=== PATIENT | female | born 1975 | race Caucasian/White ===

== ENCOUNTER 2020-09-29 22:02 | Observation (INO) | payer OTHER, SELFPAY ==
[2020-09-29 22:04] VITALS: BP 162/81; PULSE 82; RESP 15; TEMP 36.6; O2SAT 98; BMI 36.6
--- NOTE | 2020-09-29 22:26 | US_ITS ---
STUDY: ABDOMINAL ULTRASOUND - RIGHT UPPER QUADRANT REASON FOR VISIT: Female, 45 years old PAIN-RUQ TECHNIQUE: Ultrasound evaluation of the right upper quadrant was performed with real-time and static mg-scale imaging. TECHNICAL QUALITY: Adequate. COMPARISON: None. FINDINGS: Liver: The liver measures 15.7 cm. There is normal echogenicity of the liver. The bile ducts are within normal limits. There is hepatic color flow. The direction of portal flow is hepatopetal. There is no demonstrated mass lesion. Gallbladder: Normal distended gallbladder. The gallbladder wall measures 2 mm. There is a positive sonographic Wallace''s sign. There is no pericholecystic fluid. Multiple nonmobile stones in the gallbladder neck. Common Bile Duct (C.B.D.): The common bile duct measures 3 mm. Pancreas: Normal pancreatic head. Pancreatic tail and body are not visualized secondary to bowel gas. There is normal echogenicity of the pancreas. There is no demonstrated pancreatic mass or cyst. Right Kidney: Normal size of the right kidney. The right kidney measures 11.4 x 4.5 x 4.3 cm. Normal renal cortex. The right cortex measures 1.3 cm. There is no demonstrated renal mass or cyst. There is no right hydronephrosis. US/Gallbladder IMPRESSION: Normal liver Cholelithiasis with nonmobile stones in the gallbladder neck and a positive Wallace''s sign consistent with acute cholecystitis. Normal pancreatic head. Pancreatic tail and body not visualized secondary to bowel gas. Normal right kidney. Electronically Signed: Pura Sharma MD at 23:06 EDT , Service support ,
[2020-09-29 22:49] LABS: Anion Gap 6 (5-15); BUN 18 mg/dL (7-18); BUN/Creat Ratio 19.8 RATIO (10-20); Calcium,Total 9.4 mg/dL (8.5-10.1); Chloride 106 mmol/L (98-107); Creatinine, Serum 0.91 mg/dL (0.55-1.02); EST Glomerular Filtration Rate 71 mL/min (>60); Est Glom Filt Rate - Afr Amer 86 mL/min (>60); Estimated Creatinine Clearance 73.08 ml/min; Glucose 107 mg/dL (74-106); Potassium 3.8 mmol/L (3.5-5.1); Sodium Level 138 mmol/L (136-145)
[2020-09-29 23:05] LABS: AST(SGOT) 13 U/L (15-37); Alanine Aminotransfer ALT/SGPT 19 U/L (13-56); Albumin, Serum 3.8 g/dL (3.2-5.0); Alkaline Phosphatase 69 U/L (45-117); Bilirubin, Direct 0.12 mg/dL (0.00-0.30); Globulin 4.1 g/dL (2.2-4.2); Protein, Total 7.9 g/dL (6.4-8.2)
[2020-09-29] MEDS: 0.9% Normal Saline 1,000 ML 1000 ML IV (23:25)
[2020-09-29] MEDS: Ondansetron 4 MG/2 ML Vial IV (23:25)
[2020-09-29] MEDS: Morphine 4 MG/ML Syringe IV (23:26)
[2020-09-29 23:29] LABS: Absolute Lymphocyte Count 3.66 X10^3/uL (0.83-4.51); Absolute Neutrophil Count 6.3 X10^3/uL (2.0-7.7); Basophil# 0.06 X10^3/uL; Basophil% 0.5 % (0-1); Eosinophil# 0.16 X10^3/uL; Eosinophils% 1.5 % (0-5); Hematocrit 41.1 % (37-47); Hemoglobin 13.2 g/dL (12.0-15.0); Lymphocyte # 3.66 X10^3/ul (0.83-4.51); Lymphocyte % 33.3 % (19-41); Mean Corp Hgb Conc 32.1 g/dL (32-36); Mean Corpuscular Hgb 28.6 pg (27.0-32.0); Mean Platelet Vol. 9.3 fl (6.2-12.0); Monocyte# 0.77 X10^3/uL; NRBC Flagged by Analyzer 0 % (0-5); Neutrophil # 6.33 X10^3/uL (2.7-7.7); Neutrophil % 57.5 % (47-70); Platelet Count 395 K/mm3 (150-450); RBC Distribution Width CV 12.4 % (11.6-14.6); RBC Distribution Width SD 40.4 fl (35.1-43.9); Red Blood Count 4.62 M/mm3 (4.2-5.4)
[2020-09-29 23:34] LABS: Lipase 144 U/L (73-393)
[2020-09-29 23:42] LABS: Internal QC Validated? YES +Cl - CLEAR BKGD; Pregnancy, Serum, hCG Quali. NEGATIVE Negative
[2020-09-29 23:43] LABS: Mucous, Urine 0 SEEN /hpf (<or=2+); Red Blood Cells-Urine 0 SEEN /hpf (0-5); Squamous Epithelial Cells - UA 0 SEEN /hpf (5-10)
[2020-09-29 23:44] LABS: Color, Urine Yellow (Yellow); Glucose, Dipstick Normal (Normal); Ketone-Dipstick Negative (Negative); Leukocyte Esterase-Dipstick Negative /ul (Negative); Nitrite-Dipstick Negative (Negative); Occult Blood-Urine 50 /ul (Negative); Protein-Dipstick Negative (Negative); Urine Bilirubin Dipstick Negative (Negative); Urine Clarity Clear (Clear); Urine Urobilinogen Normal (Normal)
[2020-09-30] VITALS (14 sets, daily range): BP systolic 114–158; BP diastolic 63–116; PULSE 62–87; RESP 16–18; TEMP 36.5–37.3; O2SAT 97–100; BMI 36.1
[2020-09-30 00:35] LABS: Bacteria 1+ /hpf (None Seen); White Blood Cells 0-5 SEEN /hpf (0-5)
--- NOTE | 2020-09-30 00:58 | EDS_ITS ---
HPI HPI - GI History of Present Illness Chief Complaint: Abd Pain Narrative Narrative: Patient reports that she has abdominal pain that began 4:00 this afternoon is gradually gotten worse. Is a sharp pain in the right upper quadrant that radiates to her upper back that is 10-10 at worst 9-10 currently. Is worsened by movement and eating. Is relieved by remaining still. She has nausea without vomiting. No diarrhea. Last bowel was today. Normal hematochez ia. No dysuria frequency. Last menstrual period was 3 weeks ago. No vaginal bleeding or discharge. Patient reports that she has had this 7?8 times in the past 2 months. She has also noted fatty food intolerance. PFSH PFSH Home Medications NK 09/29/20 [History Last Taken Unknown] Allergy/AdvReac Type Severity Reaction Status Date / Time No Known Allergies Allergy Verified 09/29/20 22:04 Surgical History H/O tubal ligation Social History Smoking Status: Never smoker ROS ROS ED Constitutional Constitutional ED: Denies chills, fever(s) or sweats Eyes Eyes: Denies change in vision ENT ENT ED: Denies sore throat Cardiovascular Cardiovascular: Denies chest pain Respiratory/Chest Respiratory/Chest: Denies cough, dyspnea or dyspnea on exertion Gastrointestinal Gastrointestinal: Reports abdominal pain and nausea; Denies diarrhea, melena or vomiting Genitourinary Genitourinary ED: Denies dysuria or urinary frequency Musculoskeletal Musculoskeletal: Reports back pain; Denies myalgias Integumentary Denies rash Neurologic Neurologic: Denies headache(s), paresthesias or weakness EXAM Physical Exam Const Vital Signs: 09/29/20 22:04 Temperature 97.9 F Temperature Source Temporal Pulse Rate 82 Respiratory Rate 15 Blood Pressure 162/81 H Blood Pressure Mean 108 Pulse Ox 98 Oxygen Delivery Method Room Air Positive well nourished and well developed General Appearance ED: well developed HEENT Reports normocephalic and head/scalp atraumatic Eyes PERRL Neck no lymphadenopathy, supple and no JVD General: Negative for tenderness Resp normal respiratory effort and clear to auscultation bilaterally Cardio regular rate, regular rhythm and no murmurs GI normal to inspection, nondistended, normoactive bowel sounds and non-distended GI Narrative: Moderate tenderness palpation the right upper quadrant with a positive Wallace sign. No guarding, rebound, or peritoneal signs. Auscultation: normoactive bowel sounds Palpation: soft and tender Back/Spine no CVA tenderness Back/Spine Narrative: Nontender. Extremity General Extremety ED: Negative for edema or tenderness General Extremity: Negative for edema Neuro oriented x3, CN's II-XII intact bilaterally and no sensory deficits noted Sensorium / Orientation: alert Motor Exam: strength 5/5 throughout Psych mental status grossly normal Skin no rashes or lesions noted MDM MDM Lab Data Labs: Laboratory Results - last 24 hr 09/29/20 09/29/20 09/29/20 22:15 22:15 22:15 WBC 11.0 RBC 4.62 Hgb 13.2 Hct 41.1 MCV 89.0 MCH 28.6 MCHC 32.1 RDW Std Deviation 40.4 RDW Coeff of Nilam 12.4 Plt Count 395 MPV 9.3 Immature Gran % (Auto) 0.200 Neut % (Auto) 57.5 Lymph % (Auto) 33.3 [place] % (Auto) 7.0 Eos % (Auto) 1.5 Baso % (Auto) 0.5 Absolute Neuts (auto) 6.3 Absolute Lymphs (auto) 3.66 Nucleated RBC % 0 Sodium 138 Potassium 3.8 Chloride 106 Carbon Dioxide 26.0 Anion Gap 6 BUN 18 Creatinine 0.91 Estim Creat Clear Calc 73.08 Est GFR (MDRD) Af Amer 86 Est GFR (MDRD) Non-Af 71 BUN/Creatinine Ratio 19.8 Glucose 107 H Calcium 9.4 Total Bilirubin 0.30 Direct Bilirubin 0.12 AST 13 L ALT 19 Alkaline Phosphatase 69 Total Protein 7.9 Albumin 3.8 Globulin 4.1 Lipase Serum , Qual Urine Color Urine Clarity Urine pH Ur Specific [place] Urine Protein Urine Glucose (UA) Urine Ketones Urine Occult Blood Urine Nitrite Urine Bilirubin Urine Urobilinogen Ur Leukocyte Esterase Urine RBC Urine WBC Ur Squamous Epith Cells Urine Bacteria Urine Mucus 09/29/20 09/29/20 09/29/20 22:15 22:15 23:35 WBC RBC Hgb Hct MCV MCH MCHC RDW Std Deviation RDW Coeff of Nilam Plt Count MPV Immature Gran % (Auto) Neut % (Auto) Lymph % (Auto) [place] % (Auto) Eos % (Auto) Baso % (Auto) Absolute Neuts (auto) Absolute Lymphs (auto) Nucleated RBC % Sodium Cancelled Potassium Cancelled Chloride Cancelled Carbon Dioxide Cancelled Anion Gap Cancelled BUN Cancelled Creatinine Cancelled Estim Creat Clear Calc Est GFR (MDRD) Af Amer Cancelled Est GFR (MDRD) Non-Af Cancelled BUN/Creatinine Ratio Cancelled Glucose Cancelled Calcium Cancelled Total Bilirubin Direct Bilirubin AST ALT Alkaline Phosphatase Total Protein Albumin Globulin Lipase 144 Serum , Qual NEGATIVE Urine Color Yellow Urine Clarity Clear Urine pH 6.0 Ur Specific [place] 1.020 Urine Protein Negative Urine Glucose (UA) Normal Urine Ketones Negative Urine Occult Blood 50 H Urine Nitrite Negative Urine Bilirubin Negative Urine Urobilinogen Normal Ur Leukocyte Esterase Negative Urine RBC 0 SEEN Urine WBC 0-5 SEEN Ur Squamous Epith Cells 0 SEEN Urine Bacteria 1+ Urine Mucus 0 SEEN Radiography Diagnostic Testing: Radiology Impression Gallbladder Ultrasound 09/29/20 22:26 IMPRESSION: Normal liver Cholelithiasis with nonmobile stones in the gallbladder neck and a positive Wallace''s sign consistent with acute cholecystitis. Normal pancreatic head. Pancreatic tail and body not visualized secondary to bowel gas. Normal right kidney. Electronically Signed: Pura Sharma MD at 23:06 EDT , Service support , Treatment and Re-Evaluation Comments:: Emergency department course: Patient was given morphine, Zofran, and Zosyn IV. She is resting comfortably. Treatment plan: The patient was discussed with Dr. Fatima. She will be admitted to the hospital for further evaluation and treatment. Discharge Plan Triage Chief Complaint: Abd Pain ED Provider: Dov Perez Dx/Rx/DC Orders Clinical Impression: Acute cholecystitis Prescriptions: No Action NK RF: 0 Primary Care Provider: Care Physician,No Primary Referrals: Care Physician,No Primary [Primary Care Provider] -
[2020-09-30] MEDS: Morphine 2 MG/ML Syringe IV ×2 (02:25→15:52)
[2020-09-30] MEDS: 0.9% Normal Saline 1,000 ML 120 ML IV ×3 (02:25→20:03)
[2020-09-30] MEDS: Ondansetron 4 MG/2 ML Vial IV ×2 (02:49→15:53)
[2020-09-30 05:43] LABS: Absolute Lymphocyte Count 2.94 X10^3/uL (0.83-4.51); Basophil# 0.02 X10^3/uL; Basophil% 0.2 % (0-1); Eosinophil# 0.17 X10^3/uL; Hematocrit 39.4 % (37-47); Hemoglobin 12.5 g/dL (12.0-15.0); Lymphocyte # 2.94 X10^3/ul (0.83-4.51); Lymphocyte % 33.8 % (19-41); Mean Corp Hgb Conc 31.7 g/dL (32-36); Mean Corpuscular Hgb 28.3 pg (27.0-32.0); Mean Corpuscular Volume 89.1 fL (81-99); Mean Platelet Vol. 9.1 fl (6.2-12.0); Monocyte# 0.56 X10^3/uL; Monocyte% 6.4 % (0-10); NRBC Flagged by Analyzer 0 % (0-5); Neutrophil # 4.97 X10^3/uL (2.7-7.7); Neutrophil % 57.3 % (47-70); Platelet Count 323 K/mm3 (150-450); RBC Distribution Width CV 12.3 % (11.6-14.6); RBC Distribution Width SD 40.2 fl (35.1-43.9); Red Blood Count 4.42 M/mm3 (4.2-5.4); White Blood Count 8.7 K/mm3 (4.4-11.0)
--- NOTE | 2020-09-30 05:59 | HP.PCM.SX_ITS ---
HPI - General General Date of Admission: 09/30/20 HPI Narrative HARMONY LOPEZ, is a 45 F who presents due to right upper quadrant pain to the ER. Patient states she has had multiple episodes for the last 2 to 3 months. Patient's ultrasound showed gallstones at the neck, normal wall no pe richolecystic fluid, normal common bile duct. Currently patient states her pain is improved with the pain meds. PFSH Medical History Facial trauma Home Medications multivitamin 1 tab PO DAILY 09/30/20 [History Last Taken 09/29/20] Allergy/AdvReac Type Severity Reaction Status Date / Time No Known Allergies Allergy Verified 09/29/20 22:04 Surgical History H/O tubal ligation Hx of tonsillectomy Social History Smoking Status: Never smoker Vital Signs Vital Signs Vital Signs: 09/29/20 22:04 09/30/20 01:45 09/30/20 02:23 Temperature 97.9 F 98.3 F 98.3 F Temperature Source Temporal Oral Oral Pulse Rate 82 77 73 Respiratory Rate 15 16 16 Blood Pressure 162/81 H 129/116 H 130/68 H Blood Pressure Mean 108 120 88 Blood Pressure Source Monitor Blood Pressure Position Semi-Fowlers Blood Pressure Location Left Arm Pulse Ox 98 100 100 Oxygen Delivery Method Room Air Room Air Room Air Physical Exam Const alert, oriented x3 and no apparent distress HEENT normocephalic and head/scalp atraumatic Resp normal respiratory effort Cardio regular rate GI soft to palpation; Negative for non-distended Palpation: tender RUQ; Negative for guarding Extremity no clubbing, cyanosis or edema Neuro CN's II-XII intact bilaterally Psych mental status grossly normal Lab / Micro Data Result Diagrams: 09/30/20 05:15 09/29/20 22:15 Labs: Laboratory Results - last 24 hr 09/29/20 09/29/20 09/29/20 22:15 22:15 22:15 WBC 11.0 RBC 4.62 Hgb 13.2 Hct 41.1 MCV 89.0 MCH 28.6 MCHC 32.1 RDW Std Deviation 40.4 RDW Coeff of Nilam 12.4 Plt Count 395 MPV 9.3 Immature Gran % (Auto) 0.200 Neut % (Auto) 57.5 Lymph % (Auto) 33.3 [place] % (Auto) 7.0 Eos % (Auto) 1.5 Baso % (Auto) 0.5 Absolute Neuts (auto) 6.3 Absolute Lymphs (auto) 3.66 Nucleated RBC % 0 Sodium 138 Potassium 3.8 Chloride 106 Carbon Dioxide 26.0 Anion Gap 6 BUN 18 Creatinine 0.91 Estim Creat Clear Calc 73.08 Est GFR (MDRD) Af Amer 86 Est GFR (MDRD) Non-Af 71 BUN/Creatinine Ratio 19.8 Glucose 107 H Calcium 9.4 Total Bilirubin 0.30 Direct Bilirubin 0.12 AST 13 L ALT 19 Alkaline Phosphatase 69 Total Protein 7.9 Albumin 3.8 Globulin 4.1 Lipase Serum , Qual Urine Color Urine Clarity Urine pH Ur Specific [place] Urine Protein Urine Glucose (UA) Urine Ketones Urine Occult Blood Urine Nitrite Urine Bilirubin Urine Urobilinogen Ur Leukocyte Esterase Urine RBC Urine WBC Ur Squamous Epith Cells Urine Bacteria Urine Mucus 09/29/20 09/29/20 09/29/20 22:15 22:15 23:35 WBC RBC Hgb Hct MCV MCH MCHC RDW Std Deviation RDW Coeff of Nilam Plt Count MPV Immature Gran % (Auto) Neut % (Auto) Lymph % (Auto) [place] % (Auto) Eos % (Auto) Baso % (Auto) Absolute Neuts (auto) Absolute Lymphs (auto) Nucleated RBC % Sodium Cancelled Potassium Cancelled Chloride Cancelled Carbon Dioxide Cancelled Anion Gap Cancelled BUN Cancelled Creatinine Cancelled Estim Creat Clear Calc Est GFR (MDRD) Af Amer Cancelled Est GFR (MDRD) Non-Af Cancelled BUN/Creatinine Ratio Cancelled Glucose Cancelled Calcium Cancelled Total Bilirubin Direct Bilirubin AST ALT Alkaline Phosphatase Total Protein Albumin Globulin Lipase 144 Serum , Qual NEGATIVE Urine Color Yellow Urine Clarity Clear Urine pH 6.0 Ur Specific [place] 1.020 Urine Protein Negative Urine Glucose (UA) Normal Urine Ketones Negative Urine Occult Blood 50 H Urine Nitrite Negative Urine Bilirubin Negative Urine Urobilinogen Normal Ur Leukocyte Esterase Negative Urine RBC 0 SEEN Urine WBC 0-5 SEEN Ur Squamous Epith Cells 0 SEEN Urine Bacteria 1+ Urine Mucus 0 SEEN 09/30/20 05:15 WBC 8.7 RBC 4.42 Hgb 12.5 Hct 39.4 MCV 89.1 MCH 28.3 MCHC 31.7 L RDW Std Deviation 40.2 RDW Coeff of Nilam 12.3 Plt Count 323 MPV 9.1 Immature Gran % (Auto) 0.300 Neut % (Auto) 57.3 Lymph % (Auto) 33.8 [place] % (Auto) 6.4 Eos % (Auto) 2.0 Baso % (Auto) 0.2 Absolute Neuts (auto) 5.0 Absolute Lymphs (auto) 2.94 Nucleated RBC % 0 Sodium Potassium Chloride Carbon Dioxide Anion Gap BUN Creatinine Estim Creat Clear Calc Est GFR (MDRD) Af Amer Est GFR (MDRD) Non-Af BUN/Creatinine Ratio Glucose Calcium Total Bilirubin Direct Bilirubin AST ALT Alkaline Phosphatase Total Protein Albumin Globulin Lipase Serum , Qual Urine Color Urine Clarity Urine pH Ur Specific [place] Urine Protein Urine Glucose (UA) Urine Ketones Urine Occult Blood Urine Nitrite Urine Bilirubin Urine Urobilinogen Ur Leukocyte Esterase Urine RBC Urine WBC Ur Squamous Epith Cells Urine Bacteria Urine Mucus Micro: Microbiology 09/30/20 01:15 SARS-CoV-2 Antigen (Rapid) - Final Interface Orders Radiology Impression Gallbladder Ultrasound 09/29/20 22:26 IMPRESSION: Normal liver Cholelithiasis with nonmobile stones in the gallbladder neck and a positive Wallace''s sign consistent with acute cholecystitis. Normal pancreatic head. Pancreatic tail and body not visualized secondary to bowel gas. Normal right kidney. Electronically Signed: Pura Sharma MD at 23:06 EDT , Service support , Assessment & Plan Assessment/Plan (1) Acute cholecystitis: PLAN: Reviewed the anatomy with the patient and discussed the procedure: laparoscopic cholecystectomy with possible cholangiograms, possible open. Review risks including but not limited to bleeding, infection, hernia, bile leak, retai josette gallstones requiring another procedure ERCP- Endoscopic Retrograde Cholangiopancreatography, injury to another organ (bile ducts, common bile duct, small bowel, etc.) possible transfer to tertiary care facility and conversion to an open procedure. All questions were answered. Rashida Fatima M.D. Pager: [phone] [facility] [address] [place] [address], [address] [place] [address] Office: [phone] Procedure Criteria Type of Procedure Procedure Type: Elective Elective Risks - COVID COVID Risk Discussion: The surgeon/proceduralist and patient have discussed in detail the risk of exposure to and/or potential harm posed by the COVID-19 virus with having a surgery/procedure at this time versus the risk of delaying the surgery/procedure. It is not possible to know either the risk of delaying the surgery or procedure or chance of getting an infection with perfect accuracy, but a joint decision was made between the patient and the surgeon/proceduralist to proceed at this time with the scheduled surgery/procedure as indicated on the consent form.
--- NOTE | 2020-09-30 06:00 | EKG12_ITS ---
Test Reason : PRE-OP Blood Pressure : / mmHG Vent. Rate : 066 BPM Atrial Rate : 066 BPM P-R Int : 118 ms QRS Dur : 086 ms QT Int : 430 ms P-R-T Axes : 031 015 021 degrees QTc Int : 450 ms Normal sinus rhythm Normal ECG Confirmed by VIOLETTA EDWARDS, RAMILA ([id number]), order editor BROWN ANTHONY ([id number]) on 10/05/2020 9:56:31 AM Referred By: CHRISTOPHER Confirmed By:RAMILA SHIPLEY MD
[2020-09-30 06:17] LABS: AST(SGOT) 16 U/L (15-37); Alanine Aminotransfer ALT/SGPT 17 U/L (13-56); Albumin, Serum 3.2 g/dL (3.2-5.0); Alkaline Phosphatase 61 U/L (45-117); Anion Gap 6 (5-15); BUN 12 mg/dL (7-18); BUN/Creat Ratio 17.4 RATIO (10-20); Bilirubin, Direct 0.13 mg/dL (0.00-0.30); Calcium,Total 8.3 mg/dL (8.5-10.1); Chloride 112 mmol/L (98-107); Creatinine, Serum 0.69 mg/dL (0.55-1.02); EST Glomerular Filtration Rate 98 mL/min (>60); Est Glom Filt Rate - Afr Amer 118 mL/min (>60); Estimated Creatinine Clearance 96.39 ml/min; Globulin 3.4 g/dL (2.2-4.2); Glucose 87 mg/dL (74-106); Potassium 3.7 mmol/L (3.5-5.1); Protein, Total 6.6 g/dL (6.4-8.2); Sodium Level 142 mmol/L (136-145)
--- NOTE | 2020-09-30 07:12 | RAD_ITS ---
CLINICAL HISTORY: Female, 45 years old. Cholecystectomy PROCEDURE: CHOLANGIOGRAM - intraoperative CONSENT: Informed consent obtained SEDATION: General FLUOROSCOPY TIME (if supplied): (04) seconds, cine loop performed for evaluation of the cholangiogram Placement of the catheter and the procedure were performed by: Dr. Fatima Fluoroscopy was provided by Tamela MARTÍNEZ, who was present in the room time of the procedure. TECHNIQUE: (All elements of maximal sterile barrier technique followed, including US elements as applicable) After cholecystectomy, the cystic duct remnant was cannulized, and contrast injected in retrograde manner. There is normal filling of the biliary tree. There is no abnormal dilatation, evidence of retained stone, or evidence of extravasation of contrast outside the biliary tree. Normal flow of contrast noted into the duodenum. RAD/Cholangiogram/ O R,Initial IMPRESSION: Normal intraoperative cholangiogram Electronically Signed: Hipolito Lan MD at 8:51 EDT , Service support ,
[2020-09-30] MEDS: Lactated Ringers 1,000 ML 100 ML IV (07:25)
--- NOTE | 2020-09-30 07:30 | GALL_PTH ---
PATIENT: JOHN ANGELICA LOC: MS3 U#:[id number] AGE/SX: 45/F ROOM: AK317 RE09/30/[address]: Dr. Rashida Ftaima MD : 1975 BED: 1 DIS: 10/01/2020 SPEC #: [id number] RECD: 09/30/20 10:48 STATUS: MANJEET REBrittney #: [id number] LINDA: 09/30/20 07:[address]: Rashida Fatima DEPT: SURGICAL PATHOLOGY RECD BY: Yadira Goldstein ENTERED: 09/30/20 12:13 SP TYPE: NAHOMY PALOMARES DR: No Primary Care Phys Tissues: Gallbladder, NOS Procedures: Surgery Specimen Level III HEADER OPERATION: Laparoscopic cholecystectomy with IOC PRE-OP DIAGNOSIS: Acute cholecystitis TISSUE SUBMITTED: Gallbladder MICROSCOPIC DIAGNOSIS Gallbladder, cholecystectomy: Cholesterolosis, chronic cholecystitis and cholelithiasis. Benign pericystic lymph node. AM:serafin 10/03/2020 MICROSCOPIC DESCRIPTION Slides are reviewed. GROSS DESCRIPTION Received is one container labeled with the patient's name and designated gallbladder. The specimen consists of a previously opened gallbladder measuring 7.5 x 3 x 2 cm. The external surface is smooth and glistening. Focally, it is granular, hemorrhagic and contains cautery artifact. The lumen of the gallbladder contains yellow-green mucoid bile. The specimen container contains multiple green-ramos calculi averaging 1 cm in greatest diameter. The mucosa is bile-stained and without any mass lesions. The gallbladder wall averages 0.4 cm in thickness and is free of mass lesions. A ramos, pericystic nodule is present measuring 1 cm in greatest dimension. Floatman sections of the gallbladder and the cystic duct at margin of resection are submitted in one cassette. / AM:serafin 09/30/20 TC:3 CPT: 21120
[2020-09-30] MEDS: Bupivacaine Mpf 0.5% 30 ML VIAL (08:30)
--- NOTE | 2020-09-30 08:36 | PCM.OPRPT ---
Report of Operation Date of Procedure: 09/30/20 Pre-Operative Diagnosis: Acute cholecystitis, cholelithiasis Post-Operative Diagnosis: Same Surgery/Procedure Performed:: Laparoscopic cholecystectomy with cholangiograms Surgeon: Rashida Fatima sales enablement specialist: Jayda Tee Type of Anesthesia: General/Supplemental Anesthesiologist: Thomas Diaz Special Medications: Zosyn 3.375 g IV x1 Specimen's removed: Gallbladder and stones Estimated Blood Loss (mL): < 10 cc Fluids Replaced: Per anesthesia Description of Procedure: Indications this is a 45 year-old female who developed abdominal pain/nausea and on workup was found to have cholelithiasis, acute cholecystitis, with a normal common bile duct. Laparoscopic cholecystectomy was elected. Description procedure: The patient was placed on operating table in supine position. General Anesthesia was induced. A timeout was completed verifying correct patient, procedure, site, position and special equipment prior to beginning procedure. The abdomen was prepped and draped in usual sterile fashion. An incision was made in the natural skin line above the umbilicus. The fascia was elevated and incised. The peritoneum was elevated and incised. Entry into the peritoneum was confirmed visually and no bowel was noted in the vicinity of the incision. Guo trocar was placed. The abdomen was insufflated with carbon dioxide to a pressure of 12-15 mmHg. Patient tolerated insufflation well. The laparoscope was then inserted and abdomen inspected. No injuries from initial trocar placement were noted. Additional trochars were then inserted in the following locations 5 mm trocar in the epigastrium and 2 more 5 mm trochars along the right costal margin. The abdomen was inspected no abnormalities were found. The table is placed in reverse Trendelenburg position with the right side up. The adhesions between the gallbladder and omentum were lysed sharply. The dome of the gallbladder was grasped with atraumatic grasper passed through the lateral port and retracted over the dome of the liver. Infundibulum was then grasped with atraumatic grasper through the midclavicular port and retracted to the right lower quadrant. This maneuver exposed Calot's triangle. The peritoneum overlying the gallbladder infundibulum was then incised and cystic duct and artery identified and circumferentially dissected. Lai catheter was used for cholangiograms. The cholangiogram showed good filling of the common bile duct into the duodenum with no filling defects, good filling of the right and left bile ducts as well. The cystic duct and artery were then doubly clipped and divided close to the gallbladder. The gallbladder then dissected from its peritoneal attachments by electrocautery. Hemostasis was checked and the gallbladder and contained stones were removed using the endoscopic retrieval bag through the umbilical port. The gallbladder is passed off table as specimen. The gallbladder fossa was copiously irrigated with saline and hemostasis obtained. There is no evidence of bleeding from the gallbladder fossa or cystic artery leakage of bile from the cystic duct stump. Secondary trochars removed under direct vision. No bleeding was noted the trocar sites. The laparoscope was withdrawn and umbilical trocar removed. The abdomen was allowed to collapse. The fascia of the 12 mm trocar was closed with a [id number] 0 Vicryl suture. The skin was closed with sutures of 4-0 Monocryl and Steri-Strips. The orogastric tube was removed and the patient was extubated. The patient tolerated procedure well and was taken to the postanesthesia care unit in stable condition. Complications None
--- NOTE | 2020-09-30 08:39 | EX.PCM.DISCH ---
Discharge Instructions Diet Discharge Diet: Light diet - advance as tolerated Activity Discharge Activity: May not drive while taking narcotic pain medications. May shower in (days): 1 Lifting Restrictions: no lifting >20 lbs x 2 wks, no strenuous exercise for 4 wks Dressing / Incision Call your doctor if your incision/area has: Continuous Slow Oozing, Sudden Increased Bleeding, Increased Pain/ Swelling, Increased Redness, Foul Smelling Discharge and Swelling at the incision site Call your doctor if you observe: Fever of 101 or Higher Remove Dressing in: 2 days Cleanse incision/area with: Soap & Water Additional Dressing/Incision Instructions:: Steri-Strips will fall off in 7 to 10 days, if they do not fall off okay to remove after 10 days. Follow Up Care Please Follow Up With: Rashida Fatima MD When: Call the office for a follow-up appointment 2 weeks; after 5 PM and on the weekends call [phone] with any concerns. Test Results: Test results from this visit will be discussed in further detail at your follow-up appointment, if applicable. Discharge Plan Admission Admit Date/Time: 09/30/20 01:16 Attending Provider: Rashida Fatima Primary Care Provider: Teresa PhysicianKatie Primary Instructions Additional Instructions / Restrictions: Okay to take ibuprofen 400-600 mg PO q6hr PRN along with the Percocet. Avoid Tylenol since there is already Tylenol in the Percocet. Take all pain meds with food. Percocet can cause constipation recommend taking daily stool softener (i.e. Colace/docusate) while taking the pain meds. Recommend starting some MiraLAX in 1 to 2 days if no bowel movement. If still no bowel movement the following day recommend taking magnesium citrate half the bottle and waiting 4-6 hours if still no results take the other half the bottle. Discharge Orders/Prescriptions Prescriptions: New oxycodone-acetaminophen [Percocet] 5-325 mg tablet 1 tab PO Q6H PRN (Reason: pain) 3 Days Qty: 15 RF: 0 Continued multivitamin Tablet 1 tab PO DAILY RF: 0 Referrals / Follow Up: Care Physician,No Primary [Primary Care Provider] - Disposition Disposition (needs filled in before D/C Order can be placed): Home, self care
--- NOTE | 2020-09-30 14:56 | NURSING ---
pt c/o nausea. told pt that she does not have bowel sounds yet. she should not eat if she c/o nausea because she will vomit. pt continues to eat and drink anyway
[2020-09-30] MEDS: Ketorolac 30 MG/ML Syringe IV (17:30)
[2020-09-30] MEDS: Ketorolac 15 MG/ML Vial IV (22:23)
[2020-10-01 00:32] VITALS: BP 112/58; PULSE 69; RESP 16; TEMP 37.1; O2SAT 98
[2020-10-01] MEDS: Morphine 2 MG/ML Syringe IV (03:11)
[2020-10-01 04:15] VITALS: BP 120/69; PULSE 70; RESP 16; TEMP 36.9; O2SAT 97
[2020-10-01] MEDS: 0.9% Saline Lock 10 ML Syringe IV (04:22)
[2020-10-01] MEDS: Acetaminophen 325 MG Tablet 650 MG PO (04:24)
--- NOTE | 2020-10-01 08:04 | PCM.PN.SRG ---
Subjective Subjective Patient still complains of soreness on her abdomen near incision. Patient denies any nausea has been tolerating p.o. Objective Data Objective Data Vital Signs: Vital Signs Temp Pulse Resp BP Pulse Ox 98.4 F 70 16 120/69 97 10/01/20 04:15 10/01/20 04:15 10/01/20 04:15 10/01/20 04:15 10/01/20 04:15 Oxygen Delivery Method Room Air Weight: 224 lb Body Mass Index (BMI) 36.1 Intake & Output: Intake and Output for Last 24 Hours 09/29/20 09/30/20 10/01/20 23:59 23:59 23:59 Intake Total 4495.67 / 4795.67 1548 / 1548 Output Total 1100 / 1100 Balance 3395.67 / 3695.67 1548 / 1548 Lab / Micro Data Result Diagrams: 09/30/20 05:15 09/30/20 05:15 Micro: Microbiology 09/30/20 01:15 Interface Orders SARS-CoV-2 Antigen (Rapid) - Final Radiography Diagnostic Testing: Radiology Impression Cholangiogram 09/30/20 07:12 IMPRESSION: Normal intraoperative cholangiogram Electronically Signed: Hipolito Lan MD at 8:51 EDT , Service support , Physical Exam Narrative Abdomen: Soft, nondistended, tender near incisions clean dry and intact, no peritoneal signs Assessment & Plan Assessment/Plan (1) S/P laparoscopic cholecystectomy: PLAN: Patient is tolerating diet. Will make sure patient's pain is controlled with p.o. medications. Patient is ambulating vital signs remained stable will DC home.
[2020-10-01 08:15] VITALS: BP 122/66; PULSE 65; RESP 18; TEMP 36.8; O2SAT 100
[2020-10-01] MEDS: Docusate Sodium 100 MG Capsule 200 MG PO (08:55)
[2020-10-01] MEDS: oxyCODONE 5 MG Tablet PO (08:55)
[2020-10-01] MEDS: Polyethylene Glycol 3350 17 GM PACKET PO (08:55)
[2020-10-01] MEDS: Ibuprofen 600 MG Tablet PO (10:43)
== END 2020-10-01 13:25 | disposition home or self-care (01) ==
LOC: ED 09-30 00:14 → MS3 09-30 01:28
PROVIDERS: Admitting Provider Surgery; Emergency Provider Emergency Medicine; Visit Provider Surgery
PROC: (CPT 47610; principal; 2020-09-30 07:10)
DX: K80.12 Calculus of gallbladder with acute and chronic cholecystitis without obstruction (principal)
CPT/HCPCS: 00790; 47563; 36415; 74300; 76000; 76705; 80048; 80076; 81001; 83690; 84703; 85025; 87426; 88304; 93005; 96361; 96365; 96375; 96376; 99218; 99251; 99284; J7030; J7050; J7120; A4216; G0378; G0463; J2405

== ENCOUNTER → 2020-10-11 11:15 | Outpatient (CLI) | payer OTHER, SELFPAY ==
[2020-09-30 06:14] VITALS: BMI 36.1
[2020-10-11 11:31] LABS: Red Blood Cells-Urine 0 SEEN /hpf (0-5)
[2020-10-11 11:34] LABS: Color, Urine Yellow (Yellow); Glucose, Dipstick Normal (Normal); Ketone-Dipstick Negative (Negative); Leukocyte Esterase-Dipstick 500 /ul (Negative); Nitrite-Dipstick Negative (Negative); Occult Blood-Urine Negative /ul (Negative); Protein-Dipstick 15 mg/dl (Negative); Specific Gravity, Urine 1.025 (1.002-1.030); Urine Bilirubin Dipstick Negative (Negative); Urine Clarity Sl. Cloudy (Clear); Urine Urobilinogen Normal (Normal)
[2020-10-11 11:50] LABS: Bacteria 1+ /hpf (None Seen); Mucous, Urine 2+ /hpf (<or=2+); Squamous Epithelial Cells - UA 0-5 SEEN /hpf (5-10); White Blood Cells 25-50 SEEN /hpf (0-5)
== END ==
PROVIDERS: Referring Provider Surgery; Visit Provider Surgery
DX: R10.9 Unspecified abdominal pain (principal)
CPT/HCPCS: 81001; 87086; 87088

== ENCOUNTER → 2021-01-13 11:56 | Outpatient (CLI) | payer OTHER, SELFPAY ==
--- NOTE | 2021-01-13 12:00 | BI_ITS ---
MAMMOGRAPHY - BILATERAL SCREENING REASON FOR EXAM: Female, 45 years old. Routine annual screening examination. PERTINENT HISTORY: Aunt with breast cancer. TECHNIQUE: Digital bilateral breast barry (3D mammographic acquisition) in the CC and MLO projections. 2-D mediolateral oblique (MLO) and craniocaudad (CC) views of both breasts were obtained. CAD: Full Field Digital Mammography with Computer Added Detection was performed. COMPARISON: Comparison is made with prior operative examination dated 07/04/2019. FINDINGS: Breast Composition: There are scattered areas of fibroglandular density. There is a 5.6 mm x 5 mm well-defined nodule in the upper deep lateral aspect of the right breast. Correlation with ultrasound is recommended. No other significant abnormalities are identified. BI/SCRN MAMM (CAD)W/BARRY BILAT IMPRESSION: 5.6 mm x 5 mm well-defined nodule in the upper deep lateral aspect of the right breast. Correlation with ultrasound is recommended. ASSESSMENT CATEGORY: BIRADS Category 0: Incomplete. Need additional imaging evaluation. A letter regarding these results will be sent to the patient by the facility within 30 days. Approximately 10% of breast cancers are not detected by mammography. A normal mammogram should not delay biopsy of a clinically suspicious abnormality. [id number] Electronically Signed: Ferny Lechuga MD at 13:55 EDT , Service support ,
== END ==
DX: Z12.31 Encounter for screening mammogram for malignant neoplasm of breast (principal)
CPT/HCPCS: 77063; 77067

== ENCOUNTER → 2021-01-27 09:28 | Outpatient (CLI) | payer OTHER, SELFPAY ==
--- NOTE | 2021-01-27 09:32 | US_ITS ---
STUDY: ULTRASOUND BREAST - RIGHT REASON FOR EXAM: Female, 45 years old. Abnormal screening mammogram. TECHNIQUE: Axial and longitudinal images of the RIGHT breast were performed with a high resolution ultrasound transducer. # OF IMAGES: 38 COMPARISON: Comparison is made with prior mammogram dated 03/15/2021. FINDINGS: RIGHT Breast: The upper lateral aspect of the right breast was examined by ultrasound. No sonographic abnormality is seen. Additional mammographic views are recommended. US/Breast Limited Unilateral IMPRESSION: No sonographic abnormality is seen in the upper lateral aspect of the right breast. Additional mammographic views including compression spot views recommended. ASSESSMENT CATEGORY: BIRADS Category 0: Incomplete. Need additional imaging evaluation. A letter regarding these results will be sent to the patient by the facility within 30 days. Electronically Signed: Ferny Lechuga MD at 10:41 EDT , Service support ,
--- NOTE | 2021-01-27 10:04 | BI_ITS ---
MAMMOGRAPHY - UNILATERAL DIAGNOSTIC: RIGHT BREAST REASON FOR EXAM: Female, 45 years old. Abnormal screening mammogram. Negative ultrasound. PERTINENT HISTORY: Non-contributory. TECHNIQUE: Compression spot views in the MLO and craniocaudad projections were obtained. CAD: Full Field Digital Mammography with Computer Added Detection was performed. COMPARISON: Comparison is made with prior mammogram dated 01/13/2021. FINDINGS: Breast Composition: There are scattered areas of fibroglandular density. Persistent 5 mm x 5.5 mm nodular density in the upper slightly lateral aspect of the right breast. This is not seen on the recent sonogram. Correlation with MRI is recommended. No other significant abnormalities are identified. BI/DIAG MAMM W/CAD, UNILAT IMPRESSION: Persistent 5.5 mm x 5 mm nodular density in the upper slightly lateral aspect of the right breast. Correlation with MRI examination is recommended. ASSESSMENT CATEGORY: BIRADS Category 0: Incomplete. Need additional imaging evaluation. A letter regarding these results will be sent to the patient by the facility within 30 days. Approximately 10% of breast cancers are not detected by mammography. A normal mammogram should not delay biopsy of a clinically suspicious abnormality. Electronically Signed: Ferny Lechuga MD at 10:39 EDT , Service support ,
== END ==
DX: N63.11 Unspecified lump in the right breast, upper outer quadrant (principal); R92.2 Inconclusive mammogram
CPT/HCPCS: 76642; 77065

== ENCOUNTER → 2021-02-24 07:56 | Outpatient (CLI) | payer SELFPAY ==
--- NOTE | 2021-02-24 08:11 | MRI_ITS ---
STUDY: BILATERAL BREAST MR WITHOUT AND WITH CONTRAST REASON FOR EXAM: Female, 45 years old. Persistent nodule in the right breast on mammogram. Right breast ultrasound showed no abnormality. TECHNIQUE: Multi-sequence multi-echo imaging of both breasts was performed with a dedicated breast coil. T1-weighted and T2-weighted images were performed before the administration of contrast. T1-weighted images were also performed after the administration of IV 20 CC DOTAREM without complications. COMPARISON: Bilateral mammogram dated 01/13/2021, right breast ultrasound dated 01/27/2021 and diagnostic right mammogram dated 01/27/2021. FINDINGS: RIGHT BREAST: The breast tissue is scattered fibroglandular densities with minimal background enhancement. There are no abnormal enhancing masses or areas of non-mass enhancement in the right breast. LEFT BREAST: The breast tissue is scattered fibroglandular densities with minimal background enhancement. There are no abnormal enhancing masses or areas of non-mass enhancement in the left breast. There are no enlarged or abnormal lymph nodes. There is no abnormality in the visualized regions of the chest or liver. MRI/Breast Bilateral W/O and W IMPRESSION: No focal abnormality in either breast. Patient should have a six-month follow-up right diagnostic mammogram. If there is been no change in the nodule, a bilateral screening mammogram can be performed at one year from the breast MRI study. CATEGORY: BIRADS Category 3: Probably Benign - Short-Interval Follow-up Suggested. A letter regarding these results will be sent to the patient by the facility within 30 days. Electronically Signed: Clay Conway MD at 9:42 EDT , Service support ,
== END ==
DX: R92.8 Other abnormal and inconclusive findings on diagnostic imaging of breast (principal)
CPT/HCPCS: 77049; A9575; A4216; C8908

== ENCOUNTER → 2021-09-08 | Outpatient (CLI) | payer OTHER, SELFPAY ==
--- NOTE | 2021-09-08 08:53 | BI_ITS ---
MAMMOGRAPHY - UNILATERAL DIAGNOSTIC: RIGHT BREAST REASON FOR EXAM: Female, 46 years old. 6 month follow-up examination. PERTINENT HISTORY: Aunt with breast cancer. TECHNIQUE: Digital unilateral breast oumou (3D mammographic acquisition) in the CC and MLO projections. 2-D mediolateral oblique (MLO) and craniocaudad (CC) views of both breasts were obtained. CAD: Full Field Digital Mammography with Computer Added Detection was performed. COMPARISON: Comparison is made with prior study dated 03/15/2021 and 01/27/2021. FINDINGS: Breast Composition: There are scattered areas of fibroglandular density. There are no dominant masses or suspicious calcifications. The previously seen 5 mm nodule in the upper slightly lateral aspect of the left breast is essentially unchanged. A fatty hilum is seen within it. This most likely represents a small intramammary lymph node. Routine mammographic follow-up is recommended. No other significant abnormalities are identified. There has been no significant change since the prior study. BI/DIAG MAMM W/CAD, UNILAT IMPRESSION: Stable unilateral diagnostic mammogram. One year follow-up mammogram recommended. (A) ASSESSMENT CATEGORY: BIRADS Category 2: Benign. A letter regarding these results will be sent to the patient by the facility within 30 days. Approximately 10% of breast cancers are not detected by mammography. A normal mammogram should not delay biopsy of a clinically suspicious abnormality. Electronically Signed: Ferny Lechuga MD at 9:56 EDT ,
== END | disposition home or self-care (01) ==
PROVIDERS: Visit Provider Obstetrics & Gynecology
DX: N63.0 Unspecified lump in unspecified breast (principal)
CPT/HCPCS: 77061; 77065; G0279

== ENCOUNTER 2022-01-29 07:38 | Day surgery (SDC) | payer OTHER, SELFPAY ==
[2022-01-29] VITALS (7 sets, daily range): BP systolic 98–147; BP diastolic 59–90; PULSE 63–74; RESP 16–18; TEMP 36.1–36.4; O2SAT 99–100; BMI 36.6
[2022-01-29] MEDS: Lactated Ringers 1,000 ML 15 ML IV (07:55)
--- NOTE | 2022-01-29 08:02 | H&P.OPEN ---
HPI - General HPI Narrative AUGUST JOHN, is a 46 F who presents for screening colonoscopy. Patient never had a previous colonoscopy. Patient denies any family history of colon cancer. Patient does admit to a very scant amount of blood occasionally if she is constipated when she wipes. Otherwise has bowel movements every 3 to 4 days. Denies any chronic abdominal pain or nausea. PFSH Medical History Back pain Facial trauma Migraine headache Non-smoker Home Medications multivitamin 1 tab PO DAILY 01/25/22 [History Last Taken Unknown] Allergy/AdvReac Type Severity Reaction Status Date / Time No Known Allergies Allergy Verified 01/29/22 08:09 Surgical History H/O tubal ligation Hx of tonsillectomy S/P laparoscopic cholecystectomy Social History Smoking Status: Never smoker alcohol intake: never substance use type: does not use caffeine: No what type of physical activity do you participate in: none additional social history: -Cesar Past Medical/Surgical History Planned Operation Planned Operative Procedure/s: COLONOSCOPY Previous Hospitalizations/Surgeries HX Hospitalizations: No Any Problems With Anesthesia: No You/Your Family Experience Fever (Hyperthermia) With Anes: No Cholinesterase deficiency: No Cardiovascular Hx Hypertension: No Respiratory Hx Sleep Apnea: No CPAP: No Hx Respiratory Tract Infection/Cold (presently): No Do You Snore Loudly (louder than talking or can be heard): No Do You Often Feel Tired/ Fatigued/ Sleepy Dring Daytime?: No Has Anyone Observed You Stop Breathing During Sleep?: No Result (for STOP score): Negative Smoking Status: Never smoker Neurological Does patient have nerve stimulator: No Reproduction : No Miscellaneous Recent Exposure to Contagious Disease: No Allergies No Known Allergies Allergy (Verified 01/29/22 08:09) Discharge Is Pt Admitted From a Long Term, or a Retirement: No After D/C, Where Do you Plan to Go: Return Home Physical Exam Const alert, oriented x3 and no apparent distress HEENT normocephalic and head/scalp atraumatic Resp normal respiratory effort Cardio regular rate GI soft to palpation and non-tender; Negative for non-distended Palpation: Negative for guarding Extremity no clubbing, cyanosis or edema Neuro CN's II-XII intact bilaterally Psych mental status grossly normal Assessment & Plan Assessment/Plan (1) Encounter for screening for malignant neoplasm of colon: Surgery Risks - Colonoscopy Risks Include but are not Limited To: Risks include but are not limited to: Bleeding, perforation requiring further surgery, inability to complete colonoscopy requiring barium enema.
--- NOTE | 2022-01-29 09:08 | OP.CCLET_ITS ---
01/29/2022 No Primary Care Physician Re : Colonoscopy procedure for August Luis Antonio Dear Care Physician This procedure was performed on Saturday, January 29, 2022. My impressions and recommendations are as follows: Impressions : - The entire examined colon is normal on direct and retroflexion views. - No specimens collected. Recommendations : - Discharge patient to home. - Resume previous diet. - Continue present medications. - Repeat colonoscopy in 10 years for screening purposes. My findings are described in the full procedure note, which is enclosed. If I can be of further assistance, please feel free to contact me at Doctor phone number(s): , Work: . Sincerely, MD Rashida Driver MD 01/29/2022 9:07:45 AM This report has been signed electronically.
--- NOTE | 2022-01-29 09:08 | OP.COLON_ITS ---
Patient Name: August Luis Antonio Procedure Date: 01/29/2022 8:35 AM Date of : 1975 Age: 46 Procedure: Colonoscopy Indications: Screening for colorectal malignant neoplasm Providers: Rashida Fatima MD Medicines: Monitored Anesthesia Care Patient Profile: This is a 46 year old female. Last Colonoscopy: none. The patient's first colonoscopy is today. Complications: No immediate complications. Procedure: Pre-Anesthesia Assessment: - Prior to the procedure, a History and Physical was performed, and patient medications and allergies were reviewed. The patient's tolerance of previous anesthesia was also reviewed. The risks and benefits of the procedure and the sedation options and risks were discussed with the patient. All questions were answered, and informed consent was obtained. Prior Anticoagulants: The patient has taken no previous anticoagulant or antiplatelet agents. ASA Grade Assessment: Per anesthesia. After reviewing the risks and benefits, the patient was deemed in satisfactory condition to undergo the procedure. After I obtained informed consent, the scope was passed under direct vision. Throughout the procedure, the patient's blood pressure, pulse, and oxygen saturations were monitored continuously. The colonoscope was introduced through the anus and advanced to the cecum, identified by the appendiceal orifice, ileocecal valve and palpation. The colonoscopy was performed without difficulty. The patient tolerated the procedure well. The quality of the bowel preparation was good. Scope In: 8:44:38 AM Scope Withdrawal Time 0 hours 11 minutes 21 seconds Scope Out: 9:03:28 AM Total Procedure Duration Time 0 hours 18 minutes 50 seconds Findings: Residual hemorrhoidal tissue externally The entire examined colon appeared normal on direct and retroflexion views. Impression: - The entire examined colon is normal on direct and retroflexion views. - No specimens collected. Recommendation: - Discharge patient to home. - Resume previous diet. - Continue present medications. - Repeat colonoscopy in 10 years for screening purposes. Procedure Code(s): --- Professional --- 63347, PT, Colonoscopy, flexible; diagnostic, including collection of specimen(s) by brushing or washing, when performed (separate procedure) Diagnosis Code(s): --- Professional --- Z12.11, Encounter for screening for malignant neoplasm of colon CPT copyright 2017 [employer]. All rights reserved. The codes documented in this report are preliminary and upon director of music review may be revised to meet current compliance requirements. MD Rashida Driver MD 01/29/2022 9:07:45 AM This report has been signed electronically. Number of Addenda: 0 Note Initiated On: 01/29/2022 8:35 AM
== END 2022-01-29 09:53 | disposition home or self-care (01) ==
LOC: EN 07:44 → AC 07:45
PROVIDERS: Visit Provider Surgery
PROC: 0DJD8ZZ Inspection of Lower Intestinal Tract, Via Natural or Artificial Opening Endoscopic (ICD-10-PCS; CPT 45378; principal; 2022-01-29 08:55)
DX: Z12.11 Encounter for screening for malignant neoplasm of colon (principal); K64.4 Residual hemorrhoidal skin tags
CPT/HCPCS: 45378; J7120; J2405

== ENCOUNTER → 2022-02-09 | Outpatient (CLI) | payer OTHER, SELFPAY ==
--- NOTE | 2022-02-09 09:30 | BI_ITS ---
MAMMOGRAPHY - BILATERAL SCREENING REASON FOR EXAM: Female, 46 years old. Routine annual screening examination. PERTINENT HISTORY: Aunt with breast cancer. TECHNIQUE: Digital bilateral breast barry (3D mammographic acquisition) in the CC and MLO projections. 2-D mediolateral oblique (MLO) and craniocaudad (CC) views of both breasts were obtained. CAD: Full Field Digital Mammography with Computer Added Detection was performed. COMPARISON: Comparison is made with prior study dated 01/27/2021 and 09/08/2021. FINDINGS: Breast Composition: There are scattered areas of fibroglandular density. There are no dominant masses or suspicious calcifications. Stable 5 mm nodule in the upper slightly lateral aspect of the left breast. No other significant abnormalities are identified. There has been no significant change since the prior study. BI/SCRN MAMM (CAD)W/BARRY BILAT IMPRESSION: Stable bilateral screening mammogram. Yearly follow-up mammogram recommended. (A) ASSESSMENT CATEGORY: BIRADS Category 2: Benign. A letter regarding these results will be sent to the patient by the facility within 30 days. Approximately 10% of breast cancers are not detected by mammography. A normal mammogram should not delay biopsy of a clinically suspicious abnormality. [id number] Electronically Signed: Ferny Lechuga MD at 12:48 EDT ,
== END | disposition home or self-care (01) ==
LOC: OPBI 09:29
PROVIDERS: Visit Provider Obstetrics & Gynecology
DX: Z12.31 Encounter for screening mammogram for malignant neoplasm of breast (principal)
CPT/HCPCS: 77063; 77067

== ENCOUNTER 2022-08-29 07:40 | Emergency (ER) | payer OTHER, SELFPAY ==
[2022-08-29 07:42] VITALS: BP 94/79; PULSE 85; RESP 18; TEMP 36.6; O2SAT 100
--- NOTE | 2022-08-29 08:04 | VDLE_ITS ---
Reason For Study: LEG SWELLING RIGHT LEFT CFV is compressible, spontaneous, phasic, GSV is normal. competent and demonstrates normal CFV is compressible, spontaneous, phasic, augmentation. competent, and demonstrates normal Procedure augmentation. This is a venous duplex using B-mode, color FV is compressible, spontaneous, phasic, flow and spectral Doppler. competent and demonstrates normal Exam performed portable in ED. augmentation. The exam was diagnostic. POP V is compressible, spontaneous, phasic, A preliminary report was called and/or faxed competent and demonstrates normal to Dr. Beltrán. augmentation. T/P Trunk is compressible. PTV is compressible. LT PerV is compressible. VL/Venous Duplex US, Unilateral Interpretation Summary There is no evidence of left lower extremity deep vein thrombosis. Left great s aphenous vein appears patent and compressible segmentally. Normal flow patterns right common femoral vein Ordering Physician: Jerson Beltrán Referring Physician: N/A Performed By: Korey Jacinto RVT
--- NOTE | 2022-08-29 08:04 | EKG12_ITS ---
Test Reason : ARM NUMBNESS,SOB Blood Pressure : / mmHG Vent. Rate : 074 BPM Atrial Rate : 074 BPM P-R Int : 112 ms QRS Dur : 078 ms QT Int : 372 ms P-R-T Axes : 041 018 040 degrees QTc Int : 412 ms Normal sinus rhythm Normal ECG Confirmed by JUANPABLO EDWARDS, LETICIA ([id number]), writer editor BROWN ANTHONY ([id number]) on 09/03/2022 10:48:14 AM Referred By: FLORENTINO Confirmed By:LETICIA GERONIMO MD
--- NOTE | 2022-08-29 08:04 | CT_ITS ---
STUDY: CT BRAIN WITHOUT CONTRAST REASON FOR EXAM: Female, 46 years old. paresthesias RADIATION DOSAGE (If Supplied By Facility): CTDIvol = ( 44.99 ) mGy, DLP = ( 796.11 ) mGycm TECHNIQUE: Transaxial CT imaging of the brain was performed without administration of intravenous contrast material. Individualized dose optimization techniques were used for this CT. COMPARISON: No relevant priors. FINDINGS: Normal soft tissue structures. Normal calvarium. Normal size ventricles and extra-axial spaces for the patient''s age. Normal white matter tracts of the cerebral hemispheres. Normal basal ganglia and thalami. Normal brainstem. Normal cerebellum. There is no intracranial hemorrhage. There are no findings of an acute ischemic infarction. Minimal mucosal thickening along the posterior inferior aspect of the right maxillary sinus. Minimal thickening of the left ethmoid sinus. CT/Brain/Head without Contrast IMPRESSION: No acute abnormality is seen. Electronically Signed: Ferny Lechuga MD at 9:55 EDT ,
--- NOTE | 2022-08-29 08:05 | EDS_ITS ---
HPI History of Present Illness Chief Complaint: Numb/Ting Narrative Narrative: Patient presents with 2 complaints. She woke up this morning felt some tingling in her left fingers, also some pain. She has no neck pain no weakness. She is also been complaining about a week of bilateral lower extremity edema she thinks the left is worse than the right. She has no shortness of breath. She has no chest pains. She has no back pain or tearing sensation. She does not have a headache vision changes, no weakness or any other neurological symptoms. PFSH PFS Medical History Back pain Facial trauma Migraine headache Non-smoker Home Medications multivitamin 1 tab PO DAILY 01/25/22 [History Last Taken Unknown] furosemide 40 mg tablet (Lasix) 40 mg PO DAILY #7 tabs 08/29/22 [Rx Last Taken Unknown] naproxen 500 mg tablet (Naprosyn) 500 mg PO BID PRN pain #20 tabs 08/29/22 [Rx Last Taken Unknown] prednisone 20 mg tablet 40 mg PO DAILY #10 tabs 08/29/22 [Rx Last Taken Unknown] Allergy/AdvReac Type Severity Reaction Status Date / Time No Known Allergies Allergy Verified 08/29/22 07:42 Surgical History H/O tubal ligation Hx of tonsillectomy S/P laparoscopic cholecystectomy Social History Smoking Status: Never smoker alcohol intake: never substance use type: does not use caffeine: No what type of physical activity do you participate in: none additional social history: -Cesar MICHAEL RODRIGUEZ ROS Narrative Past medical history: Reviewed Medications: Reviewed Social history: Noncontributory Review of systems: All systems negative except as indicated General: No fever Eyes: No visual changes ENT: No upper airway congestion, normal voice Neck: No neck pain Cardiovascular: No chest pain Respiratory: No shortness of breath or cough Gastrointestinal: No abdominal pain, nausea vomiting or diarrhea Genitourinary: No dysuria Musculoskeletal: As in HPI Skin: No rash Neurological: No memory loss, confusion or any focal weakness. Paresthesias left fingers Psych: No recent behavioral changes Hematologic: No easy bleeding or easy bruising EXAM Physical Exam Narrative Exam Narrative: Physical exam General: Well nourished, Well developed, No Acute Distress Head: Normocephalic, Atraumatic Eyes: Conjunctiva not pale ENT: Moist mucous membranes Neck: Supple, Nontender, No lymphadenopathy Cardiovascular: Regular rate, Regular rhythm Respiratory: No distress, CTA bilaterally Abdomen: Soft, Nontender, Nondistended Back: Nontender, Normal Inspection. Negative for: CVA tenderness Extremities: Bilateral lower extremity edema it seems symmetric to me, she tells me at the end of the day it is worse on the left. She has normal strength and sensation of her left arm, she has a very positive Phalen's and Tinel's tests. Most of her paresthesias are in the second third and fourth digits. Skin: Normal color, No rash Neurological: See NIH stroke scale Const Vital Signs: 08/29/22 07:42 Temperature 97.8 F Temperature Source Temporal Pulse Rate 85 Respiratory Rate 18 Blood Pressure 94/79 Blood Pressure Mean 84 Pulse Ox 100 Oxygen Delivery Method Room Air MDM MDM MDM Narrative Medical decision making narrative: MDM Patient has bilateral lower extremity edema. Ultrasound does not show any DVTs. The edema is likely secondary to venous insufficiency. I will place her on Lasix for home and encouraged her to lose some weight. As far as her wrist pain she likely has carpal tunnel. However because of leg pain as well as wrist pain I will make sure this is not a stroke which was her concern to I do not believe so she also has a negative CT and her symptoms been ongoing for a week especially the leg. I believe that she does not need a stroke work-up. I also did a cardiac work-up which was unremarkable. I will refer her to orthopedics and give her a splint for carpal tunnel. I talked to her who was in the room who provided history. 2. Independent interpretation of test Telemetry: Sinus rhythm with a rate in the 80s without ectopy Lab Data Labs: Laboratory Results - last 24 hr 08/29/22 08/29/22 08/29/22 09:03 09:03 09:23 WBC Cancelled 7.7 Corrected WBC Cancelled RBC Cancelled 4.42 Hgb Cancelled 12.8 Hct Cancelled 39.5 MCV Cancelled 89.4 MCH Cancelled 29.0 MCHC Cancelled 32.4 RDW Std Deviation Cancelled 43.3 RDW Coeff of Nilam Cancelled 13.2 Plt Count Cancelled 318 MPV Cancelled 9.0 Immature Gran % (Auto) Cancelled 0.400 Neut % (Auto) Cancelled 69.0 Lymph % (Auto) Cancelled 23.8 Chambers % (Auto) Cancelled 5.7 Eos % (Auto) Cancelled 0.7 Baso % (Auto) Cancelled 0.4 Absolute Neuts (auto) Cancelled 5.3 Absolute Lymphs (auto) Cancelled 1.83 Total Counted Cancelled Neutrophils % (Manual) Cancelled Band Neutrophils % Cancelled Lymphocytes % (Manual) Cancelled Monocytes % (Manual) Cancelled Eosinophils % (Manual) Cancelled Basophils % (Manual) Cancelled Metamyelocytes % Cancelled Myelocytes % Cancelled Promyelocytes % Cancelled Blast Cells % Cancelled Plasma Cell % (Manual) Cancelled Other Cells % Cancelled Nucleated RBC % Cancelled 0 Nucleated RBCs/100 WBC Cancelled Differential Comment Cancelled Diff Path Review Cancelled Hypersegmented Neuts Cancelled Atypical Lymphocytes Cancelled Reactive Lymphocytes Cancelled Smudge Cells Cancelled Toxic Granulation Cancelled Toxic Vacuolation Cancelled Dohle Bodies Cancelled Ganesh Rods Cancelled Platelet Estimate Cancelled Plt Morphology Comment Cancelled RBC Morphology Cancelled Polychromasia Cancelled Hypochromasia Cancelled Poikilocytosis Cancelled Basophilic Stippling Cancelled Anisocytosis Cancelled Microcytosis Cancelled Macrocytosis Cancelled Spherocytes Cancelled Sickle Cells Cancelled Target Cells Cancelled Tear Drop Cells Cancelled Ovalocytes Cancelled Stomatocytes Cancelled [place] Bodies Cancelled Toy Cells Cancelled Bite Cells Cancelled Crenated Cell Cancelled Acanthocytes (Spur) Cancelled Rouleaux Cancelled Schistocytes Cancelled Sodium 132 L Potassium 4.3 Chloride 111 H Carbon Dioxide 17.0 L Anion Gap 4 L BUN 9 Creatinine 0.73 Est GFR (MDRD) Af Amer 110 Est GFR (MDRD) Non-Af 91 BUN/Creatinine Ratio 12.3 Glucose 94 Calcium 8.9 Total Bilirubin 0.40 AST 28 ALT 32 Alkaline Phosphatase 67 Troponin I High Sens 3 Total Protein 7.7 Albumin 3.1 L Globulin 4.6 H Albumin/Globulin Ratio 0.7 L Radiography Diagnostic Testing: Clinical Impression(s) from Imaging Studies Brain CT 08/29/22 08:04 IMPRESSION: No acute abnormality is seen. Electronically Signed: Ferny Lechuga MD at 9:55 EDT , EKG Initial EKG: Comments: Sinus rhythm with a rate of 74. Normal KS and QTc intervals. No acute changes Interpreted by emergency doctor Discharge Plan Triage Chief Complaint: Numb/Ting ED Provider: Jerson Beltrán Dx/Rx/DC Orders Clinical Impression: Acute carpal tunnel syndrome, Bilateral edema of lower extremity, Concern about stroke without diagnosis Instructions: Carpal Tunnel Syndrome, ED Peripheral Edema, Bilateral Prescriptions: New furosemide [Lasix] 40 mg tablet 40 mg PO DAILY Qty: 7 0RF prednisone 20 mg tablet 40 mg PO DAILY Qty: 10 0RF naproxen [Naprosyn] 500 mg tablet 500 mg PO BID PRN (Reason: pain) Qty: 20 0RF No Action multivitamin Tablet 1 tab PO DAILY Referrals: Carlos Collier MD [Med Staff - Active Staff] - 3-5 Days Disposition Disposition: Home, Self Care NIHSS NIHSS 1a. Level of Consciousness: Alert; keenly responsive 1b. LOC Questions: Answers BOTH questions correctly. 1c. LOC Commands: Performs both tasks correctly. 2. Best Gaze: Normal 3. Visual: No visual loss 4. Facial Palsy: Normal symmetrical movements 5a. Left Arm: No drift; arm holds 90 (or 45) degrees for full 10 seconds 5b. Right Arm: No drift; arm holds 90 (or 45) degrees for full 10 seconds 6a. Left Leg: No drift; leg holds 30-degree position for full 5 seconds 6b. Right Leg: No drift; leg holds 30-degree position for full 5 seconds 7. Limb Ataxia: Absent 8. Sensory: Normal; no sensory loss 9. Best Language: No aphasia; normal 10. Dysarthria: Normal 11. Extinction and Inattention: No abnormality Total: 0
[2022-08-29 09:26] LABS: ALB/GLOB Ratio 0.7 RATIO (0.9-2.4); AST(SGOT) 28 U/L (15-37); Alanine Aminotransfer ALT/SGPT 32 U/L (13-56); Albumin, Serum 3.1 g/dL (3.2-5.0); Alkaline Phosphatase 67 U/L (45-117); Anion Gap 4 (5-15); BUN 9 mg/dL (7-18); BUN/Creat Ratio 12.3 RATIO (10-20); Calcium,Total 8.9 mg/dL (8.5-10.1); Chloride 111 mmol/L (98-107); Creatinine, Serum 0.73 mg/dL (0.55-1.02); EST Glomerular Filtration Rate 91 mL/min (>60); Est Glom Filt Rate - Afr Amer 110 mL/min (>60); Globulin 4.6 g/dL (2.2-4.2); Glucose 94 mg/dL (74-106); Potassium 4.3 mmol/L (3.5-5.1); Protein, Total 7.7 g/dL (6.4-8.2); Sodium Level 132 mmol/L (136-145); Troponin-I HS 3 pg/mL (3.0-54.0)
[2022-08-29 09:31] LABS: Absolute Lymphocyte Count 1.83 X10^3/uL (0.83-4.51); Absolute Neutrophil Count 5.3 X10^3/uL (2.0-7.7); Basophil# 0.03 X10^3/uL; Basophil% 0.4 % (0-1); Eosinophil# 0.05 X10^3/uL; Eosinophils% 0.7 % (0-5); Hematocrit 39.5 % (37-47); Hemoglobin 12.8 g/dL (12.0-15.0); Lymphocyte # 1.83 X10^3/ul (0.83-4.51); Lymphocyte % 23.8 % (19-41); Mean Corp Hgb Conc 32.4 g/dL (32-36); Mean Corpuscular Volume 89.4 fL (81-99); Monocyte# 0.44 X10^3/uL; Monocyte% 5.7 % (0-10); NRBC Flagged by Analyzer 0 % (0-5); Neutrophil # 5.31 X10^3/uL (2.7-7.7); Platelet Count 318 K/mm3 (150-450); RBC Distribution Width CV 13.2 % (11.6-14.6); RBC Distribution Width SD 43.3 fl (35.1-43.9); Red Blood Count 4.42 M/mm3 (4.2-5.4); White Blood Count 7.7 K/mm3 (4.4-11.0)
[2022-08-29 10:43] VITALS: BP 138/97; PULSE 62; RESP 15; O2SAT 99
== END 2022-08-29 10:44 | disposition home or self-care (01) ==
PROVIDERS: Emergency Provider Emergency Medicine; Visit Provider Emergency Medicine
DX: R60.0 Localized edema (principal); M79.606 Pain in leg, unspecified; G56.00 Carpal tunnel syndrome, unspecified upper limb; Z79.52 Long term (current) use of systemic steroids
CPT/HCPCS: 36415; 70450; 80053; 84484; 85025; 93005; 93971; 99283; A4216

== ENCOUNTER → 2022-09-14 | Outpatient (CLI) | payer OTHER, SELFPAY ==
--- NOTE | 2022-09-14 14:57 | RAD_ITS ---
INDICATION: RADICULOPATHY EXAMINATION/TECHNIQUE: X-RAY - XR Spine Lumbar Min 4 Views COMPARISON: None. FINDINGS: VERTEBRAE: Preserved vertebral body height. No fracture. No spondylolisthesis. Preservation of the normal lumbar lordosis. DISCS: Disc spaces are maintained. INCLUDED ABDOMEN: Included bowel gas pattern is non-obstructive. RAD/L/S Spine Min 4 Views IMPRESSION: Unremarkable study. Electronically Signed: Landen Pratt MD at 0:41 EDT ,
== END | disposition home or self-care (01) ==
DX: M54.17 Radiculopathy, lumbosacral region (principal)
CPT/HCPCS: 72110

== ENCOUNTER → 2022-11-28 | Outpatient (CLI) | payer OTHER, SELFPAY ==
--- NOTE | 2022-11-28 14:00 | EMB_PTH ---
PATIENT: JOHN ANGELICA LOC: [facility] U#:[id number] AGE/SX: 47/F ROOM: RE11/28/[address]: Dr. Erin Little DO : 1975 BED: DIS: 11/28/2022 SPEC #: [id number] RECD: 11/28/22 16:21 STATUS: MANJEET MC #: [id number] LINDA: 11/28/22 14:[address]: Erin Little DEPT: SURGICAL PATHOLOGY RECD BY: Yadira Goldstein Tissues: Endometrium, NOS Procedures: Surgery Specimen Level IV HEADER OPERATION: Endometrial biopsy PRE-OP DIAGNOSIS: Abnormal uterine bleeding TISSUE SUBMITTED: Endometrial lining MICROSCOPIC DIAGNOSIS Endometrial biopsy: Secretory endometrium with focal glandular breakdown. TICO:serafin 11/30/2022 MICROSCOPIC DESCRIPTION Slides are reviewed. GROSS DESCRIPTION Received is one container labeled with the patient's name and not further designated. The specimen consists of multiple fragments of hemorrhagic soft tissue that in aggregate measure 2.5 x 1.5 x 0.2 cm. The specimen is totally submitted in one cassette. / SJ:serafin 11/29/2022 TC:4 CPT: 26788
== END | disposition home or self-care (01) ==
LOC: LABSPEC 16:30
PROVIDERS: Referring Provider Obstetrics & Gynecology; Visit Provider Obstetrics & Gynecology
DX: N93.9 Abnormal uterine and vaginal bleeding, unspecified (principal)
CPT/HCPCS: 88305

== ENCOUNTER → 2022-11-30 | Outpatient (CLI) | payer OTHER, SELFPAY ==
--- NOTE | 2022-11-30 15:18 | US_ITS ---
INDICATION: AUB EXAMINATION: Ultrasound US Pelvis Non OB Complete With Transvaginal Imaging COMPARISON: None. FINDINGS: 122 grayscale ultrasound images of the pelvis obtained both transabdominally and transvaginally. Cinematic series provided. In addition dedicated ovarian color Doppler and Doppler waveform interrogation was performed. UTERUS: Uterus measures : 9.5 x 5.9 x 5.3 cm. Endometrial thickness of 1.9 cm, margins somewhat indistinct. Myometrium demonstrates few mixed lesions, including hypoechoic 1.1 cm lesion and echogenic 1.2 cm lesion, suggesting uterine fibroids. Nabothian cysts. ADNEXA: Flow is documented to bilateral ovaries by color Doppler as well as Doppler waveform. Left ovary is unremarkable. Large right adnexal anechoic ovoid lesion measuring up to 4.0 cm. No significant free fluid. US/Pelvic (Non ) IMPRESSION: Borderline endometrial thickening with somewhat indistinct margins. Neoplastic process is not excluded. 4 cm right ovarian cyst. Few small uterine fibroids. Electronically Signed: Duran Cordon MD at 23:36 EDT ,
== END | disposition home or self-care (01) ==
LOC: US 15:17
PROVIDERS: Referring Provider Obstetrics & Gynecology; Visit Provider Obstetrics & Gynecology
DX: N93.9 Abnormal uterine and vaginal bleeding, unspecified (principal)
CPT/HCPCS: 76830; 76856

== ENCOUNTER 2023-01-01 15:37 | Observation (INO) | payer OTHER, SELFPAY ==
[2022-12-17 08:53] LABS: Hematocrit 39.2 % (37-47); Mean Corp Hgb Conc 33.2 g/dL (32-36); Mean Corpuscular Hgb 28.8 pg (27.0-32.0); Mean Corpuscular Volume 86.9 fL (81-99); Mean Platelet Vol. 8.8 fl (6.2-12.0); Platelet Count 341 K/mm3 (150-450); RBC Distribution Width CV 12.7 % (11.6-14.6); RBC Distribution Width SD 40.1 fl (35.1-43.9); Red Blood Count 4.51 M/mm3 (4.2-5.4); White Blood Count 8.7 K/mm3 (4.4-11.0)
[2022-12-26 10:03] LABS: Anion Gap 5 (5-15); BUN 12 mg/dL (7-18); BUN/Creat Ratio 14.7 RATIO (10-20); Calcium,Total 9.3 mg/dL (8.5-10.1); Chloride 107 mmol/L (98-107); Creatinine, Serum 0.82 mg/dL (0.55-1.02); EST Glomerular Filtration Rate 80 mL/min (>60); Est Glom Filt Rate - Afr Amer 97 mL/min (>60); Glucose 78 mg/dL (74-106); Magnesium 2.2 mg/dL (1.6-2.6); Potassium 3.6 mmol/L (3.5-5.1); Sodium Level 140 mmol/L (136-145)
[2023-01-01] VITALS (14 sets, daily range): BP systolic 111–148; BP diastolic 57–91; PULSE 65–100; RESP 12–18; TEMP 36.7–37.2; O2SAT 97–100; BMI 38.0
--- NOTE | 2023-01-01 | HYST_PTH ---
PATIENT: JOHN ANGELICA LOC: [facility] U#:[id number] AGE/SX: 47/F ROOM: [facility] RE01/01/[address]: Dr. Erin Little DO : 1975 BED: 1 DIS: 01/02/2023 SPEC #: [id number] RECD: 01/01/23 11:31 STATUS: MANJEET [place] #: [id number] LINDA: 01/01/23 00:[address]: Erin Little DEPT: SURGICAL PATHOLOGY RECD BY: Kyle Melo ENTERED: 01/01/23 11:31 SP TYPE: HYSTERECT OTHR DR: Dr. Thomas Diaz MD Tissues: Uterus, NOS Procedures: Surgery Specimen Level V HEADER OPERATION: ERAS, lap robotic hysterectomy, bilateral salpingectomy, cystoscopy, left PRE-OP DIAGNOSIS: Menorrhagia TISSUE SUBMITTED: Uterus, cervix, bilateral fallopian tubes, right ovarian cyst, left ovary MICROSCOPIC DIAGNOSIS Uterus, hysterectomy: Cervix: nabothian cysts Endometrium: proliferative change. Myometrium: Leiomyomas and adenomyosis. Left ovary: hemorrhagic corpus luteal cysts Left fallopian tube: benign paratubal cysts Right ovarian cyst: Serous cystadenoma. AM/am 01/02/23 MICROSCOPIC DESCRIPTION Slides are reviewed. GROSS DESCRIPTION Received in fixative is one container labeled with the patient's name and designated uterus. The specimen consists of a uterus with attached cervix, right and left fallopian tubes and left ovary. The uterus with cervix measures 10.5 x 8.9 x 5.0 cm and weighs 182 gm. The endocervical canal measures 3.0 cm in length and is grossly unremarkable. The triangular endometrial cavity measures 4.0 x 4.2 cm. The velvety, light ramos endometrium measures up to 0.2 cm in thickness. The myometrium measures 2.5 cm in average thickness and contains two rubbery ramos-white nodules ranging in size from 0.8 to 1.2 cm and grossly consistent with leiomyomas. The smooth, glistening right cystic ovary measures 5.5 x 4.0 x 3.6 cm and weighs 36 gm. The external surface is smooth and glistening. The external surface is inked and the ovary serially sectioned to reveal a cystic ovary. The cyst occupies approximately 95% of the ovary. The cyst wall varies in thickness from 0.2 to 0.5 cm and does not contain papillary projections or excrescences. The adjacent left fallopian tube measures 5.0 cm in length and 0.7 cm in average diameter. No distinct tubo-ovarian adhesions are identified. The right fallopian tube is similar in appearance and measures 5.5 cm in length and 0.8 cm in average diameter. Present free in the container is a smooth, glistening, presumed collapsed cystic structure measuring 3.2 x 1.0 x 0.1 cm. Escalator Installer sections are submitted as follows: 1 - anterior cervix, 2 - posterior cervix, 3 & 4 - anterior uterine wall, 5 & 6 - posterior uterine wall, 7 - myometrial masses, 8-10 - left ovary and fallopian tube, 11 - right fallopian tube, 12 - presumed cystic structure free in container. / AM:serafin 01/01/2023 TC:1 CPT: 54205
[2023-01-01 06:02] LABS: Internal QC Validated? YES +Cl - CLEAR BKGD; Pregnancy, Urine Negative Negative
[2023-01-01 06:10] LABS: Bedside Glucose 73 mg/dL (74-106)
[2023-01-01] MEDS: Celecoxib 200 MG Capsule 400 MG PO (06:21)
[2023-01-01] MEDS: Phenazopyridine 95 MG Tablet 190 MG PO (06:21)
[2023-01-01] MEDS: Acetaminophen 500 MG Tablet 1000 MG PO (06:21)
[2023-01-01] MEDS: dexAMETHasone 4 MG/ML Vial 8 MG IV (06:22)
[2023-01-01] MEDS: Gabapentin 600 MG Tablet PO (06:22)
[2023-01-01] MEDS: Lactated Ringers 1,000 ML 40 ML IV (06:23)
[2023-01-01] MEDS: Magnesium 1 GM over 15 mins IV (06:35)
--- NOTE | 2023-01-01 07:23 | PCM.HP.BLA ---
History and Physical Date of Admission: 01/01/23 Intake Vital Signs 11/28/2312:33 12/21/2312:45 12/21/2312:47 Height 5 ft 6 in 5 ft 6 in 5 ft 6 in Weight: 238 lb BMI 38.4 BP 125/84 H Intake Visit Reasons: Consult/preop hyst. Usability Specialist Required: No Is patient in pain?: No Allergies No Known Allergies Allergy (Verified 12/21/22 13:46) Medications hydrochlorothiazide 12.5 mg tablet 12.5 mg PO DAILY 11/28/22 [History Confirmed 11/28/22] Is last menstrual period known: Yes Post menopausal: No Patient : No : No [facility]: [facility] Medical History Back pain Facial trauma Migraine headache Non-smoker Surgical History H/O tubal ligation Hx of tonsillectomy S/P colonoscopy S/P laparoscopic cholecystectomy Social History current gender identity: female Smoking Status: Never smoker alcohol intake: never substance use type: does not use caffeine: No what type of physical activity do you participate in: walking frequency: 3-4 times per week additional social history: -[facility] Consult/preop hyst. Details: HARMONY LOPEZ is a 47 year old who presents for pre-op hysterectomy. EMB was benign and uterus shows multiple small fibroids. She is not interested in an IUD or hormonal therapy. UTERUS: Uterus measures : 9.5 x 5.9 x 5.3 cm. Endometrial thickness of 1.9 cm, margins somewhat indistinct. Myometrium demonstrates few mixed lesions, including hypoechoic 1.1 cm lesion and echogenic 1.2 cm lesion, suggesting uterine fibroids. Nabothian cysts. ADNEXA: Flow is documented to bilateral ovaries by color Doppler as well as Doppler waveform. Left ovary is unremarkable. Large right adnexal anechoic ovoid lesion measuring up to 4.0 cm. No significant free fluid. US/Pelvic (Non ) IMPRESSION: Borderline endometrial thickening with somewhat indistinct margins. Neoplastic process is not excluded. 4 cm right ovarian cyst. Few small uterine fibroids. History 3 Elective abortions Hx Para 3 Spontaneous abortions Hx # Term Pregnancies Ectopic pregnancies Hx # Pregnancies Multiple births # of living children Past Pregnancies Del. Date Name GA/Weeks Outcome Route Bth Weight Gen [facility] F[facility] Unknown Krystina Unknown July Unknown Cristopher ROS Const ROS Unobtainable: All systems reviewed & are unremarkable except as noted in H Resp Resp: Reports system reviewed and no additional complaints, except as documented; Denies cough GI GI: Reports as per HPI Psych Psych: Reports system reviewed and no additional complaints, except as documented Exam Const General: cooperative, healthy appearing, comfortable and no acute distress Resp Effort & Inspection: normal respiratory effort Skin General: no rashes or lesions noted Psych Appearance: grossly normal Speech and Movement: speech and movement normal Coding Level of Care Code Off vis,est,level 4 Diagnoses Menorrhagia N92.0 Assessment and Plan Assessment and Plan (1) Menorrhagia: Status: Acute Plan: After discussing the patient's diagnosis and treatment plan options, patient wishes to proceed with surgical management. I have discussed with the patient the risks, benefits, and alternatives of the procedure which include but are not limited to risks of anesthesia, bleeding, infection, possible damage to bowel, bladder, or surrounding vasculature which could lead to additional surgery to evaluate any complications. Patient agrees to procedure and wishes to proceed. ACOG/uptodate references given for additional information regarding procedure. plan for total robotic hysterectomy, bilateral salpingectomy, and cystoscopy
[2023-01-01] MEDS: Cefazolin 2 GM in 0.9% Normal Saline 100 ML IV (07:30)
[2023-01-01] MEDS: Lactated Ringers @ 70 MLS/HR 70 ML IV ×2 (07:30→10:29)
--- NOTE | 2023-01-01 07:44 | DCINST_ITS ---
Discharge Instructions Diet Discharge Diet: No restrictions Activity May resume sexual activity in: 6 weeks Weight Bearing Status: Full weight bearing Dressing / Incision Call your doctor if your incision/area has: Continuous Slow Oozing, Sudden Increased Bleeding, Increased Pain/ Swelling, Increased Redness and Foul Smelling Discharge Call your doctor if you observe: Fever of 101 or Higher, Using more than 1 pad per hour, Shortness of breath, Chest pain and Uncontrolled pain Suture Line Care: Avoid Pulling/Pushing and Avoid Pinching/Bending Remove Dressing in: 1 week (if present) Cleanse incision/area with: Soap & Water and Keep Dressing Clean & Dry Follow Up Care Please Follow Up With: Erin Little DO When: Call to make an appointment with your doctor for a postop visit in 2 and 6 weeks Test Results: Test results from this visit will be discussed in further detail at your follow- up appointment, if applicable. Discharge Plan Admission Primary Reason for Your Visit: hysterectomy Attending Provider: Erin Little Primary Care Provider: SUNITA GUERRA Consulting Providers: Thomas Diaz Discharge Orders/Prescriptions Prescriptions: New ibuprofen 800 mg tablet 800 mg PO Q8H PRN (Reason: pain) Qty: 30 0RF ondansetron HCl 4 mg tablet 4 mg PO Q6H PRN (Reason: nausea and vomiting) Qty: 20 0RF oxycodone-acetaminophen [Percocet] 5-325 mg tablet 1 tab PO Q4H PRN (Reason: pain) 7 Days Qty: 30 0RF Rx Instructions: 1-2 tabs q 4 hrs as needed for pain Continued hydrochlorothiazide 12.5 mg tablet 12.5 mg PO DAILY Centrum Silver Women 8 mg iron-400 mcg-50 mcg tablet 1 tab PO DAILY Referrals / Follow Up: Care Physician,No Primary [Non-Staff] - Disposition Disposition (needs filled in before D/C Order can be placed): Home, Self Care
[2023-01-01] MEDS: Bupivacaine 0.25% 30 ML Vial (08:34)
--- NOTE | 2023-01-01 09:08 | OP.PCM_ITS ---
Problems Associated Problem List Diagnoses (1) Menorrhagia: Report of Operation Date of Procedure: 01/01/23 Pre-Operative Diagnosis: 47 y/o, fibroid uterus, menorrhagia, obesity Post-Operative Diagnosis: 47 y/o, fibroid uterus, menorrhagia, obesity Surgery/Procedure Performed:: total robotic hysterectomy, left oophorectomy, bilateral salpingectomy, right ovarian cystectomy, cystoscopy Description of Surgical Findings:: Findings: 9 cm uterus, normal appearing fallopian tubes, Left ovarian hemorrhagic cyst, right ovarian pedunculated simple cyst. On exploration of the abdominal cavity the uterus, adnexa, bowel, and liver were found to be normal. Cystoscopy showed no evidence of leaking at approximately 250 cc of normal saline, positive ureteral orifices and jet flow are seen and no suture material was appreciated in the bladder. Specimens removed: Uterus and cervix, Bilateral tubes, right ovarian cyst, left ovary Surgeon: Erin Little cutting table operator: Iggy Varela Type of Anesthesia: General Anesthesiologist: Frank Mccabe Estimated Blood Loss (mL): 30cc Description of Procedure: Reason for surgery: This is a 47-year-old G3, P3 who presented to my office with history of heavy menses. the planned procedure is for a robotic hysterectomy the risks benefits and alternatives were discussed with the patient the patient had a clear understanding of the procedure and a consent form was signed. Procedure: The patient was placed in the dorsal low lithotomy position and prepped and draped in the normal sterile fashion both abdominally and in the perineum. Her legs were placed in stirrups a Cobb catheter was inserted into the urethra without difficulty. A weighted speculum was placed in the vagina and a single- tooth tenaculum was used to grasp the anterior lip of the cervix. A size 3.5 advincula uterine manipulator was inserted through the cervix without complication. It was then tied into place at the 2 and 10:00 locations on the cervix. Gloves were changed and attention was turned towards the abdomen. Approximately 23 cm above the pubic symphysis in the midline, and after Marcaine injection, a 8 mm incision was made. An 8 mm trocar was inserted through the laparoscope, then inserted into the abdomen under direct visualization using the laparoscope. Good abdominal placement was noted and no complications were appreciated. An air seal device was utilized to create pneumoperitoneum. At 12 cm lateral to the midline on the left and right sides 8 mm accessory ports were placed. Next a left upper quadrant 8 mm assistant professor nurse education port site was placed. The patient was placed in steep Trendelenburg position. The robot was docked. The hysterectomy was initiated first by taking down the round ligament on each side using the vessel sealer device. The peritoneum between the round ligament and the left IP ligament was opened using electrocautery and extended the length of the IP ligament. The IP ligament was then taken down using the vessel sealer device. These areas were freed without complication the broad ligament was then and taken down using the vessel sealer device. The right fallopian tube was grasped and the underlying mesosalpinx was cauterized and cut to the level of the cornua. A right ovarian pedunculated simple cyst was noted and cauterized off using the vessel sealer device. Next the bladder flap was taken down without complication. This was done using monopolar cautery to the level of the cervical vaginal junction. After the bladder flap was created, uterine vessels were then isolated and cauterized using the vessel sealer device and EndoShears. At this point the uterine vessels were taken down further starting from the ascending branch, dissecting along the edges of the cervix to the level of the cervical vaginal junction with hemostasis appreciated. The cervical vaginal junction was then using monopolar cautery in a circumferential pattern across the superior aspect of the cervix. The specimen was delivered through the vagina and sent to pathology. The remaining vaginal cuff was then closed using a V lock suture. This was performed in a running technique. Excellent hemostasis was obtained and good closure was noted. Irrigation was then performed. All operative sites were noted to be hemostatic. A cystoscopy was performed with a 70 degree cystoscope through the urethra into the bladder without complication. The bladder was instilled with approximately 250 cc of normal saline. Intraoperative images were made. Ureteral orifices and jets were identified. No suture material was appreciated in the bladder. The bladder was then drained and cystoscope was removed. The abdominal cavity was again examined using the laparoscope after the robot was undocked. All operative sites were noted to be hemostatic. The trochars were removed under direct visualization without complication and pneumoperitoneum was reduced. At this point the skin was then closed using 4-0 Monocryl subcuticular stitch and sealed with surgical glue. The patient tolerated the procedure well sponge lap and needle counts were correct x2 the patient was taken to the recovery room in stable condition. Complications none Admit VTE Documentation VTE Present on Admission: Yes VTE Mechan Device Prophylaxis: SCD's VTE Pharm Prophylaxis ordered?: No Multi Select Codes Urinary/Genital Urinary/Genital CPT Codes: 67197 Cystoscopy and 30614 TLH+BS/O <250gr uterus
[2023-01-01] MEDS: Ketorolac 30 MG/ML Syringe IV (11:50)
[2023-01-01] MEDS: HYDROmorphone Inj 0.2 MG/ML SYRINGE IV ×2 (14:19→19:49)
[2023-01-01] MEDS: Lactated Ringers 1,000 ML 100 ML IV (18:32)
[2023-01-02 00:06] VITALS: BP 112/55; PULSE 61; RESP 16; TEMP 36.8; O2SAT 100
[2023-01-02] MEDS: Ketorolac 30 MG/ML Syringe IV ×2 (00:14→06:48)
[2023-01-02 04:08] VITALS: BP 108/65; PULSE 61; RESP 16; TEMP 36.7; O2SAT 98
[2023-01-02] MEDS: HYDROmorphone Inj 0.2 MG/ML SYRINGE IV (04:15)
[2023-01-02] MEDS: Lactated Ringers 1,000 ML 100 ML IV (04:16)
--- NOTE | 2023-01-02 07:51 | PCM.PN.OB ---
Subjective Subjective patient recovering well, denies CP, SOB, N, or V. patient is ambulating, voiding ,tolerating adequate po. She states that pain is worse today. However, she is talking and laughing and not guarding. According to family and anesthesia, she had similar complaints after her laparoscopic cholecystectomy with pain issues. Objective Data Objective Data Vital Signs: Vital Signs Temp Pulse Resp BP Pulse Ox O2 Del Method O2 Flow Rate 98.1 F 61 16 108/65 98 Room Air 4 01/02/23 04:08 01/02/23 04:08 01/02/23 04:08 01/02/23 04:08 01/02/23 04:08 01/02/23 00:06 01/01/23 11:00 Oxygen Flow Rate (L/min) 4 Oxygen Delivery Method Room Air Weight: 236 lb Body Mass Index (BMI) 38.0 Intake & Output: Intake and Output for Last 24 Hours 12/31/22 01/01/23 01/02/23 23:59 23:59 23:59 Intake Total 3254.84 / 3254.84 1323.33 / 1323.33 Output Total 300 / 300 Balance 2954.84 / 2954.84 1323.33 / 1323.33 Lab / Micro Data 12/17/22 08:31 12/26/22 08:40 ROS Constitutional Constitutional: Reports systems reviewed and no addt'l complaints, except as documented Cardiovascular Cardiovascular: Denies chest pain, dizziness, dyspnea or irregular heart rhythm Respiratory/Chest Respiratory/Chest: Denies cough, pain on inspiration or shortness of breath at rest Gastrointestinal Gastrointestinal: Denies abdominal pain, nausea or vomiting Genitourinary Genitourinary: Denies burning urination Musculoskeletal Musculoskeletal: Denies muscle cramps, muscle spasms or muscle weakness Neurologic Neurologic: Denies confusion, dizziness, headache(s) or lack of coordination Psychiatric Psychiatric: Denies anxiety, behavioral changes or depression Physical Exam HEENT normocephalic Resp normal respiratory effort and normal air movement GI soft to palpation, non-tender and non-distended Rectal Exam: other Other Details: Incision is clean, dry, and intact no CVA tenderness Extremity normal to inspection General Extremity: edema bilateral (trace ) Assessment & Plan (1) Status post hysterectomy: PLAN: patient is s/p uncomplicated total robotic hysterectomy, left oophorectomy, bilateral salpingectomy, right cystectomy and cystoscopy, POD 1 1. routine ERAS protocol postop care- increase ambulation, encourage oral intake and oral control of pain. scds for dvt prophylaxis, patient stable for discharge to home, however she continues to complaint of high pain scores. -Will try muscle relaxer today as IV narcotics, toradol, and ativan is apparently not helping. will check back in this afternoon for discharge. (2) Menorrhagia:
[2023-01-02 08:57] VITALS: BP 117/66; PULSE 65; RESP 18; TEMP 36.8; O2SAT 100
[2023-01-02] MEDS: cycloBENZAPRine HCl 10 MG Tablet PO (09:08)
[2023-01-02] MEDS: Oxycodone/Apap 5/325 Tablet PO (10:23)
[2023-01-02 13:26] VITALS: BP 103/53; PULSE 77; RESP 18; TEMP 36.7; O2SAT 99
--- NOTE | 2023-01-02 13:33 | PHA.DC_ITS ---
Pharmacy [facility] has performed discharge medication reconciliation and counseling for this patient. 1. IBUPROFEN 800MG PO Q8H PRN PAIN 2. ONDANSETRON 4MG PO Q6H PRN NAUSEA/VOMITING 3. OXYCODONE/ACETAMINOPHEN 5/325MG 1T PO Q4H PRN PAIN The patient's discharge medication list was reviewed for discrepancies and discrepancies were resolved. The patient was counseled on the following discharge medications and changes in medications for homegoing were reviewed. The Reason for Use, instructions for use, and potential side effects were reviewed for all new medications. The patient's questions regarding all of their medications were answered. The patient was able to verbally demonstrate an understanding of their discharge medications. Patient counseled by accredited pharmacy technicianNicky. Medications at Discharge Home Medications hydrochlorothiazide 12.5 mg tablet 12.5 mg PO DAILY 11/28/22 ypwfqesx-vldl-wych 8 mg-folic 400 mcg-K 50 mcg-lutein 300 mcg tablet (Centrum Silver Women) 1 tab PO DAILY 12/25/22 ibuprofen 800 mg tablet 800 mg PO Q8H PRN pain #30 tabs 01/01/23 ondansetron HCl 4 mg tablet 4 mg PO Q6H PRN nausea and vomiting #20 tabs 01/01/23 oxycodone-acetaminophen 5 mg-325 mg tablet (Percocet) 1 tab PO Q4H PRN pain 7 days #30 tabs 01/01/23
== END 2023-01-02 14:06 | disposition home or self-care (01) ==
LOC: SDC 15:42 → MS3 15:42
PROVIDERS: Anesthesiology; Admitting Provider Obstetrics & Gynecology; Referring Provider Obstetrics & Gynecology; Visit Provider Obstetrics & Gynecology
PROC: 0UT90ZZ Resection of Uterus, Open Approach (ICD-10-PCS; CPT 58570; principal; 2023-01-01 07:10)
DX: D25.9 Leiomyoma of uterus, unspecified (principal); N92.0 Excessive and frequent menstruation with regular cycle; N83.12 Corpus luteum cyst of left ovary; E66.9 Obesity, unspecified; Z68.38 Body mass index [BMI] 38.0-38.9, adult; N88.8 Other specified noninflammatory disorders of cervix uteri; D27.0 Benign neoplasm of right ovary
CPT/HCPCS: 58570; S2900; 00840; 36415; 80048; 81025; 82962; 83735; 85027; 86850; 86900; 86901; 88307; 96361; 96374; 96375; 96376; 99221; J7120; G0378; J2405; J3475

== ENCOUNTER → 2023-01-21 | Outpatient (CLI) | payer OTHER, SELFPAY ==
[2023-01-21 14:39] LABS: NATERA MAILED SPECIMEN
== END | disposition home or self-care (01) ==
LOC: LAB 13:34
PROVIDERS: Referring Provider Obstetrics & Gynecology; Visit Provider Obstetrics & Gynecology
DX: Z00.00 Encounter for general adult medical examination without abnormal findings (principal); Z80.41 Family history of malignant neoplasm of ovary
CPT/HCPCS: 36415

== ENCOUNTER → 2023-03-01 | Outpatient (CLI) | payer OTHER, SELFPAY ==
--- NOTE | 2023-03-01 12:00 | BI_ITS ---
MAMMOGRAPHY - BILATERAL SCREENING REASON FOR EXAM: Female, 47 years old. Routine annual screening examination. PERTINENT HISTORY: Non-contributory. TECHNIQUE: Digital bilateral breast barry (3D mammographic acquisition) in the CC and MLO projections. 2-D mediolateral oblique (MLO) and craniocaudad (CC) views of both breasts were obtained. CAD: Full Field Digital Mammography with Computer Added Detection was performed. COMPARISON: Comparison is made with prior study February 09, 2022 and September 08, 2021. FINDINGS: Breast Composition: There are scattered areas of fibroglandular density. There are no dominant masses or suspicious calcifications. Stable 5 mm well-defined nodule in the upper slightly lateral aspect of the left breast. No other significant abnormalities are identified. There has been no significant change since the prior study. BI/SCRN MAMM (CAD)W/BARRY BILAT IMPRESSION: Stable bilateral screening mammogram. Yearly follow-up mammogram recommended. (A) ASSESSMENT CATEGORY: BIRADS Category 2: Benign. A letter regarding these results will be sent to the patient by the facility within 30 days. Approximately 10% of breast cancers are not detected by mammography. A normal mammogram should not delay biopsy of a clinically suspicious abnormality. [id number] Electronically Signed: Ferny Lechuga MD at 13:21 EDT ,
== END | disposition home or self-care (01) ==
LOC: OPBI 11:59
PROVIDERS: Referring Provider Obstetrics & Gynecology; Visit Provider Obstetrics & Gynecology
DX: Z12.31 Encounter for screening mammogram for malignant neoplasm of breast (principal)
CPT/HCPCS: 77063; 77067

== ENCOUNTER → 2024-03-13 | Outpatient (CLI) | payer OTHER, SELFPAY ==
--- NOTE | 2024-03-13 12:57 | BI_ITS ---
MAMMOGRAPHY - BILATERAL SCREENING REASON FOR EXAM: Female, 48 years old. Routine annual screening examination. PERTINENT HISTORY: Aunt with breast cancer. TECHNIQUE: Digital bilateral breast barry (3D mammographic acquisition) in the CC and MLO projections. 2-D mediolateral oblique (MLO) and craniocaudad (CC) views of both breasts were obtained. CAD: Full Field Digital Mammography with Computer Added Detection was performed. COMPARISON: Comparison is made with prior study March 01, 2023 and February 10, 2020. FINDINGS: Breast Composition: There are scattered areas of fibroglandular density. There are no dominant masses or suspicious calcifications. No other significant abnormalities are identified. There has been no significant change since the prior study. BI/SCRN MAMM (CAD)W/BARRY BILAT IMPRESSION: Stable bilateral screening mammogram. Yearly follow-up mammogram recommended. (A) ASSESSMENT CATEGORY: BIRADS Category 2: Benign. A letter regarding these results will be sent to the patient by the facility within 30 days. Approximately 10% of breast cancers are not detected by mammography. A normal mammogram should not delay biopsy of a clinically suspicious abnormality. [id number] Electronically Signed: Ferny Lechuga MD at 13:38 EDT ,
== END | disposition home or self-care (01) ==
LOC: OPBI 12:57
PROVIDERS: Referring Provider Obstetrics & Gynecology; Visit Provider Obstetrics & Gynecology
DX: Z12.31 Encounter for screening mammogram for malignant neoplasm of breast (principal)
CPT/HCPCS: 77063; 77067

== ENCOUNTER → 2025-03-19 | Outpatient (CLI) | payer OTHER, SELFPAY ==
--- NOTE | 2025-03-19 12:45 | BI_ITS ---
EXAM: BI/SCRN MAMM (CAD)W/BARRY BILAT
== END | disposition home or self-care (01) ==
LOC: OPBI 12:29
PROVIDERS: Referring Provider Obstetrics & Gynecology; Visit Provider Obstetrics & Gynecology
DX: Z12.31 Encounter for screening mammogram for malignant neoplasm of breast (principal)
CPT/HCPCS: 77063; 77067